=== PATIENT | female | born 1965 | race Caucasian/White ===

== ENCOUNTER 2017-10-19 10:01 | Emergency (ER) | payer BC, OTHER ==
[~2017-10-19] VITALS: Ht 165.1 cm; Wt 63.5 kg
[~2017-10-19 10:01] MED LIST: CHOL100045 PO; DOCU100C37 PO; HYDR-34 PO; IBUP-1773 PO; OMG1KC PO; SIME80TA16 PO
[2017-10-19] MEDS ORDERED: ASPIRIN 81 MG CHEW (CHILDREN'S ASA) PO ONE (10:15)
[2017-10-19 10:33] LABS: BASOPHILS % (AUTO) 0 % (0-10); EOSINOPHILS # (AUTO) 0.1 10^3/uL (0.0-0.3); EOSINOPHILS % (AUTO) 1 % (0-10); HEMATOCRIT 40 % (35-52); HEMOGLOBIN 13.9 G/DL (11.5-16.0); LYMPHOCYTES # (AUTO) 2.3 X 10^3 (1.0-4.0); LYMPHOCYTES % (AUTO) 22 % (12-44); MEAN CORPUSCULAR HEMOGLOBIN 33 PG (25-34); MEAN CORPUSCULAR HGB CONC 35 G/DL (32-36); MEAN CORPUSCULAR VOLUME 93 FL (80-99); MONOCYTES # (AUTO) 0.8 X 10^3 (0.0-1.0); MONOCYTES % (AUTO) 7 % (0-12); NEUTROPHILS # (AUTO) 7.6 X 10^3 (1.8-7.8); NEUTROPHILS % (AUTO) 71 % (42-75); PLATELET COUNT 162 10^3/uL (130-400); RED BLOOD COUNT 4.26 10^6/uL (4.35-5.85); RED CELL DISTRIBUTION WIDTH 12.3 % (10.0-14.5); WHITE BLOOD COUNT 10.7 10^3/uL (4.3-11.0)
[2017-10-19 10:44] LABS: PROTHROMBIN TIME PATIENT 12.6 SEC (12.2-14.7)
[2017-10-19 10:55] LABS: ALANINE AMINOTRANSFERASE 20 U/L (0-55); ALKALINE PHOSPHATASE 83 U/L (40-136); AMYLASE 42 U/L (25-125); BILIRUBIN,TOTAL 0.4 MG/DL (0.1-1.0); BUN/CREATININE RATIO 17; CALCIUM 9.7 MG/DL (8.5-10.1); CARBON DIOXIDE 21 MMOL/L (21-32); CHLORIDE 107 MMOL/L (98-107); CREATINE KINASE 49 U/L (29-168); CREATININE SERUM 0.66 MG/DL (0.60-1.30); GFR ESTIMATED > 60; GLUCOSE 162 MG/DL (70-105); LIPASE 12 U/L (8-78); POTASSIUM 3.8 MMOL/L (3.6-5.0); SODIUM 140 MMOL/L (135-145); TOTAL PROTEIN 6.8 GM/DL (6.4-8.2)
[2017-10-19 11:02] LABS: CREATINE KINASE MB 0.9 NG/ML (<6.6)
[2017-10-19] MEDS ORDERED: methylPREDNISolone 125 MG (Solu-MEDROL) VIAL IV STA (11:06)
--- NOTE | 2017-10-19 11:06 | Diagnostic Imaging Report ---
INDICATION: Intermittent right-sided chest pain worse with inspiration since yesterday evening. History of pneumothorax. Productive cough.. TECHNIQUE: Single view chest 10:39 AM. CORRELATION STUDY: None FINDINGS: Surgical changes suture line of the right lung apex. Lung estrada are hyperinflated. Biapical pleural-parenchymal thickening and likely scarlike formation. There is asymmetric increased density at the right lung base suspect for small area of infiltrate. Heart size, mediastinum and vasculature are overall within normal limits. IMPRESSION: 1. Suspect for infiltrate of the right lung base superimposed on chronic change at the lung parenchyma. Dictated by: Dictated on workstation # [id number]
[2017-10-19] MEDS ORDERED: IOHEXOL 350 MG/ML 100 ML (OMNIPAQUE 350) VIAL IV ONE (11:15)
[2017-10-19] MEDS ORDERED: NS 250 ML (IVPB) BAG IV ONE (11:15)
[2017-10-19] MEDS ORDERED: CATHETER FLUSH 10 ML SYR IV PRN (11:15)
--- NOTE | 2017-10-19 12:38 | Diagnostic Imaging Report ---
PROCEDURE: CT angiography of the chest with contrast. TECHNIQUE: Multiple contiguous axial images were obtained through the chest after uneventful bolus administration of intravenous contrast. Reconstructed CTA MIP acquisitions were also performed. INDICATION: Chest pain Findings: There is no filling defect in the pulmonary arteries to suggest pulmonary embolism. The heart size is within normal limits. Thoracic aorta unremarkable. There is no pathologically enlarged mediastinal and/or hilar lymph nodes. Lung estrada with rather advanced fibroemphysematous changes. Multifocal scattered areas of asymmetric parenchymal density are noted particularly involving the lung apices. This is likely largely owing to scarring. Some of these areas are slightly stellate and possibility of neoplasm would be difficult to exclude at this baseline study. There is slightly more focal consolidation about the lateral aspect of the the right middle lobe. This region measures approximately 4.6 cm. A few air bronchograms are suggested. No significant pleural effusion. Visualized portions of the upper abdomen demonstrate hyperplasia about the adrenal glands. IMPRESSION: 1. No CT evidence for pulmonary embolism. 2. Findings likely reflective of a focal consolidation with pneumonia of the right middle lobe. 3. 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 Asymmetrical parenchymal scarring about the lung apices is suggested. Additionally, surgical change of the right lung apex. 4. Given no prior studies, would recommend repeat imaging be obtained approximately 2-3 months for followup assessment. Dictated by: Dictated on workstation # [id number]
[2017-10-19] MEDS ORDERED: BENZ-13 PO (12:53)
[2017-10-19] MEDS ORDERED: METH4TAB PO (12:53)
[2017-10-19] MEDS ORDERED: GUAI1TBM19 PO (12:53)
[2017-10-19] MEDS ORDERED: AZIT500T PO (12:53)
[2017-10-19] MEDS ORDERED: CEFD300C3 PO (12:53)
--- NOTE | 2017-10-19 12:53 | ED Chest Pain ---
General Chief Complaint: Chest Pain Stated Complaint: R SIDE CP Nursing Triage Note: pt reports intermittent r sided cp that is worse with inspiration since yesterday evening. Pt has hx of pneumothorax in both lungs. pt also reports productive cough. Nursing Sepsis Screen: No Definite Risk Source: patient Exam Limitations: no limitations History of Present Illness Date Seen by Provider: Oct 19, 2017 Time Seen by Provider: 10:05 Initial Comments PT ARRIVES VIA POV FROM HOME C/O RIGHT CHEST PAIN/TIGHTNESS THAT COMES AND GOES SINCE NIGHT BEFORE LAST PAIN STARTED WHILE AT WORK 2 NIGHTS AGO, THEN TRIED TO GO TO WORK LAST NIGHT BUT COULD NOT GO DUE TO PAIN PAIN IS BETTER TODAY--HAS BEEN 10/10 THE LAST 2 NIGHTS, RATES 5/10 TODAY BEGAN HAVING A PRODUCTIVE COUGH TODAY--COLORED SPUTUM HAS HAD SUBJECTIVE CHILLS TODAY, NO SWEATS AND HAS NOT TAKEN TEMP NO SHORTNESS OF BREATH NO SWELLING IN LEGS/ FEET OR PAIN IN CALVES. NO HISTORY OF SIMILAR PT HAS HAD MULTIPLE BILATERAL PNEUMOTHORACES, AND HAS HAD SURGICAL REPAIR ON RIGHT IN . STATES THIS PAIN IS NOT THE SAME WITH THOSE PROBLEMS. HAS NOT TAKEN ANYTHING FOR SYMPTOMS AT ANY TIME PT CONTINUES TO SMOKE UP TO 2 PPD PCP: [facility], KRISTYN LAWTON Allergies and Home Medications Allergies Coded Allergies: No Known Drug Allergies (Unverified , 12/01/15) Home Medications Azithromycin 500 Mg Tablet, 500 MG PO DAILY FOR INFECTION Prescribed by: SEAN CONNER on 10/19/17 1253 Benzonatate 100 Mg Capsule, 1-2 TAB PO TID Prescribed by: SEAN CONNER on 10/19/17 1253 Cefdinir 300 Mg Capsule, 300 MG PO BID Prescribed by: SEAN CONNER on 10/19/17 1253 Cholecalciferol (Vitamin D3) 1,000 Unit Tablet, 1,000 UNIT PO HS, (Reported) Docusate Sodium 100 Mg Capsule, 100 MG PO BID PRN for CONSTIPATION Prescribed by: JOSE E CORDOBA on 12/04/15 0924 Guaifenesin/Dextromethorphan 1 Each Tbmp.12hr, 1 EACH PO BID Prescribed by: SEAN CONNER on 10/19/17 1253 Hydrocodone Bit/Acetaminophen 1 Each Tablet, 1-2 EA PO Q6H PRN for PAIN Prescribed by: JOSE E CORDOBA on 8/18/16 0924 Ibuprofen 600 Mg Tablet, 600 MG PO Q6H PRN for PAIN Prescribed by: JOSE E CORDOBA on 12/04/15923 Methylprednisolone 4 Mg Tab.ds.pk, 4 MG PO UD Prescribed by: SEAN CONNER on 10/19/17 1253 [place] 3 Polyunsat Fatty Acids 1,000 Mg Cap, 1,000 MG PO HS, (Reported) Simethicone 80 Mg Tab.chew, 40 MG PO TID PRN for INDIGESTION Prescribed by: JOSE E CORDOBA on 12/04/15923 Patient Home Medication List Home Medication List Reviewed: Yes Review of Systems Constitutional: see HPI, chills EENTM: No Symptoms Reported Respiratory: See HPI, Cough; Denies Shortness of Air Cardiovascular: See HPI, Chest Pain; Denies Edema, Denies Lightheadedness, Denies Palpitations, Denies Syncope Gastrointestinal: No Symptoms Reported Genitourinary: No Symptoms Reported Musculoskeletal: no symptoms reported Skin: no symptoms reported Psychiatric/Neurological: No Symptoms Reported Endocrine: No Symptoms Reported Hematologic/Lymphatic: No Symptoms Reported Past Qxusqqf-Cckora-Zhtpzb Hx Patient Social History Alcohol Use: Denies Use Recreational Drug Use: No Smoking Status: Current Everyday Smoker (1-2 PPD) Type Used: Cigarettes Recent Foreign Travel: No Contact w/Someone Who Travel: No Recent Infectious Disease Expo: No Physical Abuse: No Sexual Abuse: No Mistreated: No Fear: No Past Medical History Surgeries: Yes (MULTIPLE CHEST TUBES; RIGHT LUNG SURGERY FOR RECURRENT PNEUMOTHORAX; HYST/BSO/DERMOID CYST) Hysterectomy, Oophorectomy Respiratory: Yes (RIGHT PNEUMOTHORAX X 3; LEFT PNEUMOTHORAX X 1 OR 2; RIGHT LUNG SURGERY FOR RECURRENT PNEUMOTHORAX IN ) COPD Cardiac: No Neurological: No Reproductive Disorders: Yes (DERMOID CYST; HYST/BSO) SHIP PILOT History: Hysterectomy, Menopausal Genitourinary: No Gastrointestinal: Yes Irritable Bowel Musculoskeletal: No Endocrine: No HEENT: No Loss of Vision: Denies Cancer: No Psychosocial: No Nursing Suicide Risk Score: 0 Integumentary: No Blood Disorders: No Family Medical History Abdominal aortic aneurysm 19 FATHER Alcoholism 19 FATHER 19 MOTHER Arthritis 19 MOTHER Asthma Cardiovascular disease 19 FATHER Completed stroke 19 MOTHER Hypertension G8 BROTHER Myocardial infarction G8 BROTHER VIT D AND B12 DEFICIENCY Physical Exam Vital Signs Vital Signs - First Documented Capillary Refill : Less Than 3 Seconds General Appearance: No Apparent Distress, WD/WN, Other (OCCASIONAL DRY COUGH. REEKS OF CIGARETTES) HEENT: PERRL/EOMI, Normal ENT Inspection Neck: Full Range of Motion, Normal Inspection, Non Tender, Supple Respiratory: Chest Non Tender, No Accessory Muscle Use, No Respiratory Distress , Decreased Breath Sounds (IN RIGHT BASE), Rales (IN RIGHT BASE) Cardiovascular: Regular Rate, Rhythm, No Edema, No JVD, No Murmur, Normal Peripheral Pulses Gastrointestinal: Normal Bowel Sounds, No Organomegaly, No Pulsatile Mass, Non Tender, Soft Extremity: Normal Range of Motion, Non Tender, No Calf Tenderness, No Pedal Edema Neurologic/Psychiatric: Alert, Oriented x3, No Motor/Sensory Deficits, Normal Mood/Affect, counter help II-XII Norm as Tested Skin: Normal Color, Warm/Dry; No Rash Progress/Results/Core Measures Results/Orders Lab Results Laboratory Tests Test 10/19/17 10:15 Range/Units White Blood Count 10.7 4.3-11.0 10^3/uL Red Blood Count 4.26 L 4.35-5.85 10^6/uL Hemoglobin 13.9 11.5-16.0 G/DL Hematocrit 40 35-52 % Mean Corpuscular Volume 93 80-99 FL Mean Corpuscular Hemoglobin 33 25-34 PG Mean Corpuscular Hemoglobin Concent 35 32-36 G/DL Red Cell Distribution Width 12.3 10.0-14.5 % Platelet Count 162 130-400 10^3/uL Mean Platelet Volume 12.0 H 7.4-10.4 FL Neutrophils (%) (Auto) 71 42-75 % Lymphocytes (%) (Auto) 22 12-44 % Monocytes (%) (Auto) 7 0-12 % Eosinophils (%) (Auto) 1 0-10 % Basophils (%) (Auto) 0 0-10 % Neutrophils # (Auto) 7.6 1.8-7.8 X 10^3 Lymphocytes # (Auto) 2.3 1.0-4.0 X 10^3 Monocytes # (Auto) 0.8 0.0-1.0 X 10^3 Eosinophils # (Auto) 0.1 0.0-0.3 10^3/uL Basophils # (Auto) 0.0 0.0-0.1 10^3/uL Prothrombin Time 12.6 12.2-14.7 SEC INR Comment 1.0 0.8-1.4 Activated Partial Thromboplast Time 27 24-35 SEC Sodium Level 140 135-145 MMOL/L Potassium Level 3.8 3.6-5.0 MMOL/L Chloride Level 107 98-107 MMOL/L Carbon Dioxide Level 21 21-32 MMOL/L Anion Gap 12 5-14 MMOL/L Blood Urea Nitrogen 11 7-18 MG/DL Creatinine 0.66 0.60-1.30 MG/DL Estimat Glomerular Filtration Rate > 60 BUN/Creatinine Ratio 17 Glucose Level 162 H 70-105 MG/DL Calcium Level 9.7 8.5-10.1 MG/DL Total Bilirubin 0.4 0.1-1.0 MG/DL Aspartate Amino Transf (AST/SGOT) 13 5-34 U/L Alanine Aminotransferase (ALT/SGPT) 20 0-55 U/L Alkaline Phosphatase 83 40-136 U/L Total Creatine Kinase 49 29-168 U/L Creatine Kinase MB 0.9 <6.6 NG/ML Troponin I < 0.30 <0.30 NG/ML B-Type Natriuretic Peptide 28.8 <100.0 PG/ML Total Protein 6.8 6.4-8.2 GM/DL Albumin 4.0 3.2-4.5 GM/DL Amylase Level 42 25-125 U/L Lipase 12 8-78 U/L My Orders Orders - SEAN CONNER DO Amylase (10/19/17 10:05) Cbc With Automated Diff (10/19/17 10:05) Comprehensive Metabolic Panel (10/19/17 10:05) Creatine Kinase (10/19/17 10:05) Creatine Kinase Mb (10/19/17 10:05) Lipase (10/19/17 10:05) Partial Thromboplastin Time (10/19/17 10:05) Protime With Inr (10/19/17 10:05) Troponin I (10/19/17 10:05) Chest 1 View, Ap/Pa Only (10/19/17 10:05) O2 (10/19/17 10:05) Ekg Tracing (10/19/17 10:05) Aspirin Chewable Tablet (Baby Aspirin Ch (10/19/17 10:15) BNP (10/19/17 10:05) Monitor-Rhythm Ecg Trace Only (10/19/17 10:05) Ct Angio Chest W (10/19/17 11:06) Methylprednisolone Sod Succ (Solu-Medrol (10/19/17 11:06) Iohexol Injection (Omnipaque 350 Mg/Ml 1 (10/19/17 11:15) Sodium Chloride Flush (Catheter Flush Sy (10/19/17 11:15) Ns (Ivpb) (Sodium Chloride 0.9%) (10/19/17 11:15) Pharmacy Communication (Pharmacy Communi (10/19/17 11:07) Ceftriaxone Injection (Rocephin Injectio (10/19/17 13:00) Medications Given in ED Current Medications Medications Dose Ordered Sig/Mandeep Route Start Time Stop Time Status Last Admin Dose Admin Aspirin 324 mg ONCE ONCE PO 10/19/17 10:15 10/19/17 10:16 DC 10/19/17 10:20 324 MG Ceftriaxone Sodium 1000 mg/ Sodium Chloride 50 ml @ 100 mls/hr ONCE ONCE IV 10/19/17 13:00 10/19/17 13:29 DC 10/19/17 13:00 100 MLS/HR Iohexol 100 ml ONCE ONCE IV 10/19/17 11:15 10/19/17 11:16 DC 10/19/17 11:31 100 ML Sodium Chloride 10 ml NEEDED PRN IV 10/19/17 11:15 10/19/17 13:36 DC 10/19/17 11:31 10 ML Sodium Chloride 250 ml ONCE ONCE IV 10/19/17 11:15 10/19/17 11:16 DC 10/19/17 11:31 80 ML Vital Signs/I&O 10/19/17 10/19/17 10/19/17 10:30 10:30 10:37 Temp 98.4 Pulse 80 Resp 20 B/P (MAP) 124/63 (83) Pulse Ox 96 96 O2 Delivery Nasal Cannula Nasal Cannula Nasal Cannula O2 Flow Rate 2.00 2.0 2.00 Blood Pressure Mean: 83 Progress Progress Note : Progress Note RIGHT SIDED CHEST PAIN RESOLVED WITH SOLU-MEDROL, AND COUGH DECREASED UNEVENTFUL ER STAY Diagnostic Imaging Comments CXR--INFILTRATE IN RIGHT BASE, PER RADIOLOGIST REPORT CT CHEST ANGIOGRAM--NO P.E.. ADVANCED FIBROEMPHYSEMATOUS CHANGES IN LUNG PARENCHYMA, WITH ASYMMETRICAL SCARRING IN APICES, SURGICAL CHANGE IN RIGHT APEX , FOCAL CONSOLIDATION IN RML PER RADIOLOGIST REPORTS @ 1243 Reviewed: Reviewed by Me Departure Impression Primary Impression: RML pneumonia Disposition: 01 HOME, SELF-CARE Condition: Improved Departure-Patient Inst. Referrals: [facility] (PCP/Family) Primary Care Physician Patient Instructions: Community-Acquired Pneumonia, Adult (DC) Add. Discharge Instructions: TYLENOL AND MOTRIN NEEDED FOR PAIN OR FEVER LOTS OF CLEAR LIQUIDS FOLLOW UP WITH [facility] IN 3-4 DAYS RETURN TO ER IF WORSE All discharge instructions reviewed with patient and/or family. Voiced understanding. Scripts Guaifenesin/Dextromethorphan (Mucinex Dm ER 1,200-60 mg Tab) 1 Each Tbmp.12hr 1 EACH PO BID for 10 Days, #20 EA Prov: SEAN CONNER DO 10/19/17 Benzonatate (Tessalon Perle) 100 Mg Capsule 1-2 TAB PO TID for Cough, #30 CAP Prov: SEAN CONNER DO 10/19/17 Methylprednisolone (Medrol) 4 Mg Tab.ds.pk 4 MG PO UD, #1 PKG Prov: SEAN CONNER DO 10/19/17 Azithromycin (Zithromax) 500 Mg Tablet 500 MG PO DAILY, #5 TAB FOR INFECTION Prov: SEAN CONNER DO 10/19/17 Cefdinir (Cefdinir) 300 Mg Capsule 300 MG PO BID for FOR INFECTION, #20 CAP Prov: SEAN CONNER DO 10/19/17 Work/School Note: Work Release Form Date Seen in the Emergency Department: Oct 19, 2017 Restrictions: Need Release from Doctor Other Restrictions Listed Below: NO WORK UNTIL RELEASED BY SEAN GREGG DO Oct 19, 2017 12:53
[2017-10-19] MEDS ORDERED: cefTRIAXone INJECTION 1,000 MG in NS (IVPB) 50 ML IV ONE (13:00)
[2017-10-19 13:36] VITALS: BP 118/69
== END 2017-10-19 13:36 | disposition home or self-care (01) ==
LOC: EDUNIT# 10:01 → ER 10:02
DX: J18.1 Lobar pneumonia, unspecified organism (principal); J44.9 Chronic obstructive pulmonary disease, unspecified; F17.210 Nicotine dependence, cigarettes, uncomplicated; Z90.710 Acquired absence of both cervix and uterus; Z87.09 Personal history of other diseases of the respiratory system
CPT/HCPCS: 36415; 71045; 71275; 80053; 82150; 82550; 82553; 83690; 83880; 84484; 85025; 85610; 85730; 93005; 93041; 96374; 96375

== ENCOUNTER → 2020-08-15 | Outpatient (CLI) | payer OTHER ==
[~2020-08-15] MED LIST changes: +AZIT500T PO; +BENZ100C18 PO; +CEFD300C3 PO; +GUAI1TBM19 PO; +METH4TAB PO
--- NOTE | 2020-08-15 12:42 | Diagnostic Imaging Report ---
Indication: Routine screening. Comparison is made with prior mammogram from 11/11/2015. 2-D and 3-D bilateral screening mammography was performed with CAD. Scattered fibroglandular densities are identified bilaterally. The parenchymal pattern is stable. No mass or malignant appearing microcalcifications are seen. Axillae are unremarkable. IMPRESSION: BI-RADS Category 1 No mammographic features suspicious for malignancy are identified. ACR BI-RADS Category 1: Negative. Result letter will be mailed to the patient. Note: At least 10% of breast cancer is not imaged by mammography. Dictated by: Dictated on workstation # [id number]
== END ==
LOC: RAD 09:45
PROVIDERS: ATTEND Family Medicine
DX: Z12.31 Encounter for screening mammogram for malignant neoplasm of breast (principal)
CPT/HCPCS: 77063; 77067

== ENCOUNTER → 2020-09-11 | Outpatient (CLI) | payer OTHER ==
[~2020-09-11] MED LIST changes: +NF-VITD400 PO; +PANT40TA52 PO
--- NOTE | 2020-09-11 09:53 | Diagnostic Imaging Report ---
PROCEDURE: US Gallbladder. TECHNIQUE: Multiple real-time grayscale images were obtained over the right upper quadrant in various projections. INDICATION: Epigastric pain. The liver is normal in size at 17 cm. No discrete liver mass is detected. Portal vein is patent and shows normal direction of flow. Gallbladder is without stones or sludge. There is no wall thickening or biliary ductal dilatation. Pancreas is unremarkable. Aorta is nonaneurysmal. IVC is patent. Right kidneys without calculi or hydronephrosis. There is no ascites. IMPRESSION: Unremarkable gallbladder ultrasound. Dictated by: Dictated on workstation # [id number]
== END ==
LOC: RAD 08:55
PROVIDERS: ATTEND Family Medicine
DX: R10.13 Epigastric pain (principal)
CPT/HCPCS: 76705

== ENCOUNTER 2020-09-19 05:34 | Outpatient (RCR) | payer OTHER ==
[~2020-09-19] VITALS: Ht 165.1 cm; Wt 66.7 kg
== END 2020-09-19 14:07 | disposition home or self-care (01) ==
LOC: PREOP 05:34
PROVIDERS: ATTEND Surgery
DX: Z01.812 Encounter for preprocedural laboratory examination (principal); Z12.11 Encounter for screening for malignant neoplasm of colon; Z20.822 Contact with and (suspected) exposure to COVID-19
CPT/HCPCS: 87635

== ENCOUNTER 2021-02-28 01:43 | Emergency (ER) | payer OTHER ==
[~2021-02-28] VITALS: Ht 65 cm; Wt 67.6 kg
--- NOTE | 2021-02-28 02:13 | ED Chest Pain ---
General Chief Complaint: Chest Pain Stated Complaint: CP,CHEST TIGHTNESS,COUGH,RUNNY NOSE Source: patient Exam Limitations: no limitations History of Present Illness Date Seen by Provider: Feb 28, 2021 Time Seen by Provider: 01:54 Initial Comments Patient to the ER by private conveyance from her work at [employer] with chief complaints of been having 8/10 chest pain throughout the night on her left side reproducible to direct palpation and worse laying down flat. She does not have a history of coronary disease hypertension hyperlipidemia diabetes or thyroid disease. She does smoke a pack of cigarettes per day. She says her mom and father both of heart related illnesses in their 70s. No swelling in her hands or feet. No fevers or chills but she woke up yesterday morning with runny nose cough and thought it was just allergies. She did receive 2 doses of COVID- 19 vaccination by Dina in July and has had her influenza vaccine for this year. No shortness of air. No vomiting diarrhea. Patient has a history of multiple bilateral pneumothoraces with surgical repair in the . She has advanced fibroemphysematous changes noted on her CT angiogram from 2017. Allergies and Home Medications Allergies Coded Allergies: No Known Drug Allergies (Unverified , 12/01/15) Patient Home Medication List Home Medication List Reviewed: Yes Pantoprazole Sodium (Pantoprazole Sodium) 40 Mg Tablet.dr, 40 MG PO DAILY, (Reported) Entered as Reported by: MK PETERSON on 09/11/20 1100 Vitamin D (Vitamin D3) 10 Mcg Tablet, 400 MCG PO DAILY, (Reported) Entered as Reported by: MK PETERSON on 09/11/20 1100 Review of Systems Review of Systems Constitutional: No chills, No diaphoresis, No fever; malaise EENTM: No Blurred Vision, No Double Vision Respiratory: Cough; Denies Shortness of Air Cardiovascular: Chest Pain; Denies Edema, Denies Lightheadedness Gastrointestinal: Denies Abdominal Pain, Denies Constipated, Denies Diarrhea, Denies Nausea Genitourinary: Denies Burning, Denies Discharge Musculoskeletal: No back pain, No joint pain Psychiatric/Neurological: Denies Anxiety, Denies Depressed All Other Systems Reviewed Negative Unless Noted: Yes Past Mcfslfv-Pmtbxk-Gcnuod Hx Patient Social History Tobacco Use?: Yes Tobacco type used: Cigarettes Use of E-Cig and/or Vaping dev: No Use of E-Cig and/or Vaping Martinez: Former User Substance use?: No Alcohol Use?: No Pt feels they are or have been: No Immunizations Up To Date Influenza Vaccine Up-to-Date: Yes; Up-to-Date First/Initial COVID19 Vaccinat: 07/2020 Second COVID19 Vaccination Ajay: 08/2020 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 Manager Industrial: [employer] Past Medical History Surgeries: Yes Hysterectomy, Oophorectomy Respiratory: Yes COPD Cardiac: No Neurological: No Reproductive Disorders: Yes (DERMOID CYST; HYST/BSO) [employer] MAKER History: Hysterectomy, Menopausal Genitourinary: No Gastrointestinal: Yes Irritable Bowel Musculoskeletal: No Endocrine: No HEENT: No Loss of Vision: Denies Cancer: No Psychosocial: No Integumentary: No Blood Disorders: No Family Medical History Abdominal aortic aneurysm 19 FATHER Alcoholism 19 FATHER 19 MOTHER Arthritis 19 MOTHER Asthma Cardiovascular disease 19 FATHER Completed stroke 19 MOTHER Hypertension G8 BROTHER Myocardial infarction G8 BROTHER VIT D AND B12 DEFICIENCY Physical Exam Vital Signs Vital Signs - First Documented 02/28/21 01:55 Temp 36.6 Pulse 88 Resp 20 B/P (MAP) 159/68 (98) Pulse Ox 95 O2 Delivery Room Air Capillary Refill : Less Than 3 Seconds Height, Weight, BMI Height: 5'5.00" Weight: 140lbs. 9.0oz. 63.704401bp; 22.80 BMI Method:Stated General Appearance: WD/WN, Anxious, Mild Distress HEENT: PERRL/EOMI, TMs Normal, Normal ENT Inspection, Pharynx Normal, Moist Mucous Membranes Neck: Full Range of Motion, Normal Inspection, Non Tender, Supple Respiratory: No Chest Non Tender (Chest pain reproducible to palpation over the left chest); Lungs Clear, Normal Breath Sounds, No Accessory Muscle Use, No Respiratory Distress Cardiovascular: Regular Rate, Rhythm, No Edema, Normal Peripheral Pulses Gastrointestinal: Normal Bowel Sounds, No Organomegaly, Non Tender, Soft Extremity: Normal Capillary Refill, Normal Inspection, Non Tender, No Calf Tenderness, No Pedal Edema Neurologic/Psychiatric: Alert, Oriented x3 Skin: Normal Color, Warm/Dry Progress/Results/Core Measures Results/Orders Lab Results Laboratory Tests Test 02/28/21 02:05 02/28/21 02:12 11/13/21 04:55 Range/Units White Blood Count 13.2 H 4.3-11.0 10^3/uL Red Blood Count 3.98 3.80-5.11 10^6/uL Hemoglobin 12.5 11.5-16.0 g/dL Hematocrit 39 35-52 % Mean Corpuscular Volume 97 80-99 fL Mean Corpuscular Hemoglobin 31 25-34 pg Mean Corpuscular Hemoglobin Concent 33 32-36 g/dL Red Cell Distribution Width 12.4 10.0-14.5 % Platelet Count 199 130-400 10^3/uL Mean Platelet Volume 11.7 9.0-12.2 fL Immature Granulocyte % (Auto) 0 % Neutrophils (%) (Auto) 73 42-75 % Lymphocytes (%) (Auto) 18 12-44 % Monocytes (%) (Auto) 7 0-12 % Eosinophils (%) (Auto) 1 0-10 % Basophils (%) (Auto) 0 0-10 % Neutrophils # (Auto) 9.7 H 1.8-7.8 10^3/uL Lymphocytes # (Auto) 2.4 1.0-4.0 10^3/uL Monocytes # (Auto) 1.0 0.0-1.0 10^3/uL Eosinophils # (Auto) 0.1 0.0-0.3 10^3/uL Basophils # (Auto) 0.0 0.0-0.1 10^3/uL Immature Granulocyte # (Auto) 0.0 0.0-0.1 10^3/uL Prothrombin Time 13.3 12.2-14.7 SEC INR Comment 1.0 0.8-1.4 Activated Partial Thromboplast Time 28 24-35 SEC D-Dimer 0.76 H 0.00-0.49 UG/ML Sodium Level 138 135-145 MMOL/L Potassium Level 3.7 3.6-5.0 MMOL/L Chloride Level 103 98-107 MMOL/L Carbon Dioxide Level 23 21-32 MMOL/L Anion Gap 12 5-14 MMOL/L Blood Urea Nitrogen 19 H 7-18 MG/DL Creatinine 0.74 0.60-1.30 MG/DL Estimat Glomerular Filtration Rate 81 BUN/Creatinine Ratio 26 Glucose Level 117 H 70-105 MG/DL Calcium Level 9.2 8.5-10.1 MG/DL Corrected Calcium 9.1 8.5-10.1 MG/DL Magnesium Level 1.9 1.6-2.4 MG/DL Total Bilirubin 0.5 0.1-1.0 MG/DL Aspartate Amino Transf (AST/SGOT) 19 5-34 U/L Alanine Aminotransferase (ALT/SGPT) 31 0-55 U/L Alkaline Phosphatase 86 40-136 U/L Myoglobin 25.3 10.0-92.0 NG/ML Troponin I < 0.028 < 0.028 <0.028 NG/ML B-Type Natriuretic Peptide 11.4 <100.0 PG/ML Total Protein 6.8 6.4-8.2 GM/DL Albumin 4.1 3.2-4.5 GM/DL Lipase 19 8-78 U/L Influenza Type A (RT-PCR) Not Detected Not Detecte Influenza Type B (RT-PCR) Not Detected Not Detecte SARS-CoV-2 RNA (RT-PCR) Not Detected Not Detecte My Orders Orders - ARIK SIMON Continuous Ekg Monitoring (02/28/21 01:52) Ekg Tracing (02/28/21 01:52) Cbc With Automated Diff (02/28/21 02:07) Magnesium (02/28/21 02:07) Chest 1 View, Ap/Pa Only (02/28/21 02:07) Comprehensive Metabolic Panel (02/28/21 02:07) Myoglobin Serum (02/28/21 02:07) Protime With Inr (02/28/21 02:07) Partial Thromboplastin Time (02/28/21 02:07) O2 (02/28/21 02:07) Lipid Panel (03/01/21 06:00) Ed Iv/Invasive Line Start (02/28/21 02:07) Lipase (02/28/21 02:07) BNP (02/28/21 02:07) Troponin I (02/28/21 02:07) Nitroglycerin 0.4 Mg Btl 25's (Nitrostat (02/28/21 02:15) Aspirin Chewable Tablet (Baby Aspirin Ch (02/28/21 02:15) Covid 19 Inhouse Test (02/28/21 02:13) Influenza A And B By Pcr (02/28/21 02:13) Fibrin Degradation Products (02/28/21 02:05) Ct Angio Chest W (02/28/21 02:54) Ed Iv/Invasive Line Start (02/28/21 02:54) Ns Iv 1000 Ml (Sodium Chloride 0.9%) (02/28/21 03:00) Troponin I (02/28/21 05:00) Iohexol Injection (Omnipaque 350 Mg/Ml 1 (02/28/21 03:45) Received Contrast (Hold Metformin- Contr (02/28/21 03:45) Ns (Ivpb) (Sodium Chloride 0.9% Ivpb Bag (02/28/21 03:45) Medications Given in ED Current Medications Medications Dose Ordered Sig/Amndeep Route Start Time Stop Time Status Last Admin Dose Admin Aspirin 243 mg ONCE ONCE PO 02/28/21 02:15 02/28/21 02:17 DC 02/28/21 02:20 243 MG Iohexol 75 ml ONCE ONCE IV 02/28/21 03:45 02/28/21 03:46 DC 02/28/21 03:45 75 ML Nitroglycerin 0.4 mg UD PRN SL 02/28/21 02:15 02/28/21 02:20 0.4 MG Sodium Chloride 100 ml ONCE ONCE IV 02/28/21 03:45 02/28/21 03:46 DC 02/28/21 03:45 80 ML Vital Signs/I&O 02/28/21 02/28/21 01:55 01:55 Temp 36.6 Pulse 88 Resp 20 B/P (MAP) 159/68 (98) Pulse Ox 95 95 O2 Delivery Room Air Room Air Progress Progress Note #1: Time: 02:12 Progress Note Concern for angina versus pneumonia versus chest wall pain versus other. We will swab her for Covid and influenza give her another 3 tablets of aspirin x81 mg each and trial some nitroglycerin. Chest pain work-up including chest x-ray. There was a slight delay obtaining an EKG as our machine stopped working and another one had to be procured from another [facility]. D-dimer for intermediate risk factors. Progress Note #2: Time: 06:04 Progress Note The patient was sleeping softly and has negative delta troponin. Probable pneumonia on CT angiogram noted. We will give her first round dose of antibiotics Rocephin and azithromycin. Did offer the patient stay in the hospital as when she slapped her oxygen did dip down to 89%. Patient declined stating she would rather do antibiotics at home. We will have her follow-up with her primary care doctor next week. We will give her a referral for cardiology if she wants to pursue further work-up. Initial ECG Impression Date: Feb 28, 2021 Initial ECG Impression Time: 02:07 Initial ECG Rate: 80 Initial ECG Rhythm: Normal Sinus Initial ECG Intervals: Normal Initial ECG Impression: Normal Initial ECG Comparisson: Unchanged Comment Normal sinus rhythm without clinically relevant ST changes. Stable compared to previous EKGs. Diagnostic Imaging Diagonstic Imaging: Xray Plain Films/CT/US/NM/MRI: chest Comments No acute cardiopulmonary process on 1 view chest x-ray. [facility] [place] NAME: MIKY HELLER Richard [facility] REC#: [id number] PT STATUS: REG ER : 1965 PHYSICIAN: ARIK SIMON MD ADMIT DATE: 02/28/21/ER Draft Date of Exam:02/28/21 CHEST 1 VIEW, AP/PA ONLY EXAMINATION: Chest radiograph, portable AP view. DATE: 02/28/2021 2:46 AM INDICATION: 55-year-old female, chest pain. COMPARISON: October 19, 2017. FINDINGS: There are sutures and surgical clips in the right lung apex. There are probable upper lobe findings of emphysema. Heart size and mediastinal contours are unchanged. There is no identified pneumothorax. There is no large pleural effusion. There is airspace consolidation in the lingula. IMPRESSION: 1. Airspace consolidation in the lingula which may relate to pneumonia, aspiration, or other alveolar consolidative process. 2. Upper lobe predominant findings of emphysema. 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 There is an area of consolidation or atelectasis in the lingula. No pulmonary emboli. [facility] [place] NAME: MIKY HELLER [facility] REC#: [id number] PT STATUS: REG ER : 1965 PHYSICIAN: ARIK SIMON MD ADMIT DATE: 02/28/21/ER Draft Date of Exam:02/28/21 CT ANGIO CHEST W PROCEDURE: CT angiography of the chest with contrast. TECHNIQUE: Multiple contiguous axial images were obtained through the chest after uneventful bolus administration of intravenous contrast. 3D reconstructed CTA MIP acquisitions were also performed. Auto Exposure Controls were utilized during the CT exam to meet ALARA standards for radiation dose reduction. DATE: February 28, 2021. COMPARISON: CT chest October 19, 2017. INDICATION: 55-year-old female, chest pain and cough. FINDINGS: There is pleural parenchymal scarring in the lung apices. There are upper lobe predominant findings of emphysema. There is nonspecific airspace consolidation in the lingula. This is new since the prior CT chest exam. There is no additional focal airspace consolidation. There is no pneumothorax. There is no pleural effusion. Central airways are patent. The heart is not enlarged. There is no pericardial effusion. There is no identified central or segmental pulmonary embolus. There is limited evaluation for subsegmental pulmonary emboli given the timing of the contrast bolus. There is no identified abnormally enlarged mediastinal, hilar, or axillary lymph node meeting CT size criteria for adenopathy. The imaged portions of the upper abdomen are grossly unremarkable. There are atherosclerotic calcifications present. There is no identified acute bony abnormality. IMPRESSION: CT CHEST. 1. No identified pulmonary embolus. 2. Nonspecific airspace consolidation in the lingula which may relate to pneumonia, aspiration, or other filtrate. 3. Upper lobe predominant findings of emphysema with pleural parenchymal scarring in the lung apices. Agree with provided preliminary report. Dictated on workstation # [id number] Dict: 02/28/21 0404 Trans: 02/28/21 0417 VERONICA [id number] Interpreted by: PEMA DODD MD Electronically signed by: Reviewed: Reviewed by Me Departure Impression Primary Impression: Chest pain Qualified Codes: R07.9 - Chest pain, unspecified Additional Impression: RML pneumonia Qualified Codes: J18.9 - Pneumonia, unspecified organism Disposition: 01 HOME, SELF-CARE Condition: Stable Departure-Patient Inst. Decision time for Depature: 06:05 Referrals: [facility] (PCP/Family) Primary Care Physician JERE RODRIGUEZ MD Patient Instructions: Chest Pain (DC), Troponin Test, Pneumonia, Adult (DC) Add. Discharge Instructions: Tuesday morning call Dr. Rodriguez's office and request follow-up appointment this week. Return to the ER for worsening symptoms. Aspirin 81 mg daily until you see the heart doctor. Follow-up in 1 week with your primary care doctor. Cefdinir twice a day for 10 days. Azithromycin once a day for the next 4 days starting tomorrow, 03/01/2021. All discharge instructions reviewed with patient and/or family. Voiced understanding. Scripts Azithromycin (Azithromycin) 250 Mg Tablet 250 MG PO DAILY, #4 TAB 0 Refills Prov: ARIK SIMON 02/28/21 Cefdinir (Cefdinir) 300 Mg Capsule 300 MG PO BID for 10 Days, #20 CAP 0 Refills Prov: ARIK SIMON 02/28/21 Copy Copies To 1: JERE RODRIGUEZ MD, TITUS J Feb 28, 2021 02:13
[2021-02-28 02:15] LABS: BASOPHILS % (AUTO) 0 % (0-10); EOSINOPHILS # (AUTO) 0.1 10^3/uL (0.0-0.3); EOSINOPHILS % (AUTO) 1 % (0-10); HEMATOCRIT 39 % (35-52); HEMOGLOBIN 12.5 g/dL (11.5-16.0); LYMPHOCYTES # (AUTO) 2.4 10^3/uL (1.0-4.0); LYMPHOCYTES % (AUTO) 18 % (12-44); MEAN CORPUSCULAR HEMOGLOBIN 31 pg (25-34); MEAN CORPUSCULAR HGB CONC 33 g/dL (32-36); MEAN CORPUSCULAR VOLUME 97 fL (80-99); MEAN PLATELET VOLUME 11.7 fL (9.0-12.2); MONOCYTES % (AUTO) 7 % (0-12); NEUTROPHILS # (AUTO) 9.7 10^3/uL (1.8-7.8); NEUTROPHILS % (AUTO) 73 % (42-75); PLATELET COUNT 199 10^3/uL (130-400); WHITE BLOOD COUNT 13.2 10^3/uL (4.3-11.0)
[2021-02-28] MEDS ORDERED: NITROGLYCERIN 0.4 MG SL TABS BTL 25'S SL PRN (02:15)
[2021-02-28] MEDS ORDERED: ASPIRIN 81 MG CHEW (CHILDREN'S ASA) PO ONE (02:15)
[2021-02-28 02:28] LABS: ALBUMIN 4.1 GM/DL (3.2-4.5); POTASSIUM 3.7 MMOL/L (3.6-5.0); PROTHROMBIN TIME PATIENT 13.3 SEC (12.2-14.7)
[2021-02-28 02:29] LABS: CALCIUM 9.2 MG/DL (8.5-10.1)
[2021-02-28 02:31] LABS: TOTAL PROTEIN 6.8 GM/DL (6.4-8.2)
[2021-02-28 02:32] LABS: BILIRUBIN,TOTAL 0.5 MG/DL (0.1-1.0)
[2021-02-28 02:34] LABS: CREATININE SERUM 0.74 MG/DL (0.60-1.30)
[2021-02-28 02:37] LABS: MAGNESIUM 1.9 MG/DL (1.6-2.4)
[2021-02-28 02:40] LABS: FIBRIN DEGRADATION PRODUCTS 0.76 UG/ML (0.00-0.49)
[2021-02-28] MEDS ORDERED: NS IV 1000 ML 1,000 ML IV SCH (03:00)
[2021-02-28] MEDS ORDERED: HOLD METFORMIN - RECEIVED CONTRAST 20 ML VIAL IV SCH (03:45)
[2021-02-28] MEDS ORDERED: IOHEXOL 350 MG/ML 100 ML (OMNIPAQUE 350) VIAL IV ONE (03:45)
[2021-02-28] MEDS ORDERED: NS 100 ML (IVPB) BAG IV ONE (03:45)
--- NOTE | 2021-02-28 04:18 | Diagnostic Imaging Report ---
PROCEDURE: CT angiography of the chest with contrast. TECHNIQUE: Multiple contiguous axial images were obtained through the chest after uneventful bolus administration of intravenous contrast. 3D reconstructed CTA MIP acquisitions were also performed. Auto Exposure Controls were utilized during the CT exam to meet ALARA standards for radiation dose reduction. DATE: February 28, 2021. COMPARISON: CT chest October 19, 2017. INDICATION: 55-year-old female, chest pain and cough. FINDINGS: There is pleural parenchymal scarring in the lung apices. There are upper lobe predominant findings of emphysema. There is nonspecific airspace consolidation in the lingula. This is new since the prior CT chest exam. There is no additional focal airspace consolidation. There is no pneumothorax. There is no pleural effusion. Central airways are patent. The heart is not enlarged. There is no pericardial effusion. There is no identified central or segmental pulmonary embolus. There is limited evaluation for subsegmental pulmonary emboli given the timing of the contrast bolus. There is no identified abnormally enlarged mediastinal, hilar, or axillary lymph node meeting CT size criteria for adenopathy. The imaged portions of the upper abdomen are grossly unremarkable. There are atherosclerotic calcifications present. There is no identified acute bony abnormality. IMPRESSION: CT CHEST. 1. No identified pulmonary embolus. 2. Nonspecific airspace consolidation in the lingula which may relate to pneumonia, aspiration, or other filtrate. 3. Upper lobe predominant findings of emphysema with pleural parenchymal scarring in the lung apices. Agree with provided preliminary report. Dictated by: Dictated on workstation # [id number]
--- NOTE | 2021-02-28 04:25 | Diagnostic Imaging Report ---
EXAMINATION: Chest radiograph, portable AP view. DATE: 02/28/2021 2:46 AM INDICATION: 55-year-old female, chest pain. COMPARISON: October 19, 2017. FINDINGS: There are sutures and surgical clips in the right lung apex. There are probable upper lobe findings of emphysema. Heart size and mediastinal contours are unchanged. There is no identified pneumothorax. There is no large pleural effusion. There is airspace consolidation in the lingula. IMPRESSION: 1. Airspace consolidation in the lingula which may relate to pneumonia, aspiration, or other alveolar consolidative process. 2. Upper lobe predominant findings of emphysema. Dictated by: Dictated on workstation # [id number]
[2021-02-28] MEDS ORDERED: CEFD300C3 PO (06:06)
[2021-02-28] MEDS ORDERED: AZIT250T12 PO (06:06)
[2021-02-28] MEDS ORDERED: cefTRIAXone 1 GM PRE-MIX 50 ML IV STA (06:07)
[2021-02-28] MEDS ORDERED: AZITHROMYCIN 250 MG TAB (ZITHROMAX) PO ONE (06:15)
[2021-02-28 06:32] VITALS: BP 159/68
== END 2021-02-28 06:45 | disposition home or self-care (01) ==
LOC: EDUNIT# 01:43 → ER 01:48
DX: R07.9 Chest pain, unspecified (principal); J18.1 Lobar pneumonia, unspecified organism; J44.9 Chronic obstructive pulmonary disease, unspecified; Z72.0 Tobacco use; Z20.822 Contact with and (suspected) exposure to COVID-19
CPT/HCPCS: 36415; 71045; 71275; 80053; 83690; 83735; 83874; 83880; 84484; 85025; 85379; 85610; 85730; 87636; 93005

== ENCOUNTER → 2021-03-18 | Outpatient (CLI) | payer OTHER ==
[~2021-03-18] MED LIST changes: +AZIT250T12 PO
== END ==
LOC: CARD 08:50
PROVIDERS: ATTEND Internal Medicine Cardiovascular Disease
DX: I10 Essential (primary) hypertension (principal)
CPT/HCPCS: 93306

== ENCOUNTER → 2021-08-19 | Outpatient (CLI) | payer OTHER ==
[2021-08-19 10:48] VITALS: BP 125/70
--- NOTE | 2021-08-19 17:08 | Cardiology Stress Test Report ---
Stress Test Report Date of Procedure/Referring: Date of Procedure: August 19, 2021 PCP Asya Chen [facility] Indications: CP Baseline Heart Rate: 68 Baseline Blood Pressure: Blood Pressure Systolic: 125 Blood Pressure Diastolic: 70 Baseline EKG: Baseline EKG: NSR Summary/Conclusion: Summary: In summary, the patient started exercising with a baseline heart rate, blood pressure and EKG mentioned above Patient was able to exercise for a total of 6 minutes on Josr protocol, METs 7.3 Maximum heart rate 142 Maximum blood pressure 177/64 Stress EKG, Minimal nondiagnostic changes Recovery EKG , Return to baseline Conclusion: 1. Good exercise tolerance for a total of 6 minutes on Josr protocol, 7.4 METs, achieving 86percent of maximum expected heart rate 2. Minimal nondiagnostic EKG changes with exercise returned to baseline during recovery 3. No arrhythmia was noted JERE HANNAH MD August 19, 2021 17:08
== END ==
LOC: CARD 10:30
PROVIDERS: ATTEND Physician Assistant
DX: R07.9 Chest pain, unspecified (principal)
CPT/HCPCS: 93017

== ENCOUNTER → 2021-08-28 | Outpatient (CLI) | payer OTHER ==
[2021-08-28 16:46] LABS: ALBUMIN 4.2 GM/DL (3.2-4.5); BILIRUBIN,TOTAL 0.4 MG/DL (0.1-1.0); CALCIUM 9.1 MG/DL (8.5-10.1); CREATININE SERUM 0.72 MG/DL (0.60-1.30); POTASSIUM 4.1 MMOL/L (3.6-5.0); TOTAL PROTEIN 6.7 GM/DL (6.4-8.2)
== END ==
LOC: LAB 16:04
PROVIDERS: ATTEND Physician Assistant
DX: E78.2 Mixed hyperlipidemia (principal)
CPT/HCPCS: 36415; 80053; 80061

== ENCOUNTER 2021-09-08 13:08 | Emergency (ER) | payer OTHER ==
[~2021-09-08] VITALS: Ht 165 cm; Wt 68.0 kg
[2021-09-08] MEDS ORDERED: KETOROLAC 30 MG/ML VIAL IM ONE (14:30)
[2021-09-08] MEDS ORDERED: ORPHENADRINE 60 MG/2 ML (NORFLEX) AMP (ED ONLY) IM ONE (14:30)
--- NOTE | 2021-09-08 14:30 | ED Back Pain ---
General Chief Complaint: Back Problems Stated Complaint: L LEG PAIN/BACK PAIN Nursing Triage Note: pt presents to ed via pov from home with complaints of l lower back pain that radiates down l leg since tuesday after pulling weeds. pt reports she has not taken any pain medication today. Source of Information: Patient Exam Limitations: No Limitations History of Present Illness Date Seen by Provider: September 08, 2021 Time Seen by Provider: 14:26 Initial Comments This is a 56-year-old female who presented to the ER with complaints of left- sided lower back pain that radiates down the back of her leg for the past 3 days. Allergies and Home Medications Allergies Coded Allergies: No Known Drug Allergies (Unverified , 12/01/15) Patient Home Medication List Home Medication List Reviewed: Yes Azithromycin (Azithromycin) 250 Mg Tablet, 250 MG PO DAILY Prescribed by: ARIK SIMON on 02/28/21 06 Cefdinir (Cefdinir) 300 Mg Capsule, 300 MG PO BID Prescribed by: ARIK SIMON on 02/28/21 0606 Hydrocodone/Acetaminophen (Hydrocodone-Acetamin 5-325 mg) 5 Mg-325 Mg Tablet, 1 TAB PO Q6H PRN for PAIN-MODERATE (5-7) Prescribed by: CAIO TABOR on 09/08/21 1527 Pantoprazole Sodium (Pantoprazole Sodium) 40 Mg Tablet.dr, 40 MG PO DAILY, (Reported) Entered as Reported by: MK PETERSON on 09/11/20 1100 Vitamin D (Vitamin D3) 10 Mcg Tablet, 400 MCG PO DAILY, (Reported) Entered as Reported by: MK PETERSON on 09/11/20 1100 Past Fglmxkr-Bcctwn-Xmbhjo Hx Patient Social History Tobacco Use?: Yes Tobacco type used: Cigarettes Smoking Status: Current Everyday Smoker Substance use?: No Alcohol Use?: No Pt feels they are or have been: No Immunizations Up To Date First/Initial COVID19 Vaccinat: 07/2020 Second COVID19 Vaccination Ajay: 08/2020 Third COVID19 Vaccination Date: 07/2020 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 Basket Hand Braider: navya Past Medical History Surgery/Hospitalization HX: pmh: htn, gerd, ibs Surgeries: Yes Hysterectomy, Oophorectomy Respiratory: Yes COPD Cardiac: No Neurological: No Reproductive Disorders: Yes (DERMOID CYST; HYST/BSO) DEAN OF ADMISSIONS History: Hysterectomy, Menopausal Genitourinary: No Gastrointestinal: Yes Irritable Bowel Musculoskeletal: No Endocrine: No HEENT: No Loss of Vision: Denies Cancer: No Psychosocial: No Integumentary: No Blood Disorders: No Family Medical History Abdominal aortic aneurysm 19 FATHER Alcoholism 19 FATHER 19 MOTHER Arthritis 19 MOTHER Asthma Cardiovascular disease 19 FATHER Completed stroke 19 MOTHER Hypertension G8 BROTHER Myocardial infarction G8 BROTHER VIT D AND B12 DEFICIENCY Physical Exam Vital Signs Vital Signs - First Documented 09/08/21 13:42 Temp 36.4 Pulse 90 Resp 18 B/P (MAP) 165/70 (101) Pulse Ox 96 Capillary Refill : Less Than 3 Seconds Height, Weight, BMI Height: 5'5.00" Weight: 140lbs. 9.0oz. 63.668502ab; 24.00 BMI Method:Stated Progress/Results/Core Measures Results/Orders My Orders Orders - CAIO TABOR FACULTY MEMBER Ketorolac Injection (Toradol Injection) (09/08/21 14:30) Orphenadrine Inj (Ed Only) (Norflex Inje (09/08/21 14:30) Lumbar Spine - 2-3 Views (09/08/21 14:30) Medications Given in ED Current Medications Medications Dose Ordered Sig/Mandeep Route Start Time Stop Time Status Last Admin Dose Admin Ketorolac Tromethamine 30 mg ONCE ONCE IM 09/08/21 14:30 09/08/21 14:31 DC 09/08/21 14:36 30 MG Orphenadrine Citrate 30 mg ONCE ONCE IM 09/08/21 14:30 09/08/21 14:31 DC 09/08/21 14:36 30 MG Vital Signs/I&O 09/08/21 13:42 Temp 36.4 Pulse 90 Resp 18 B/P (MAP) 165/70 (101) Pulse Ox 96 Blood Pressure Mean: 101 Departure Impression Primary Impression: Spondylosis Disposition: 01 HOME, SELF-CARE Condition: Improved Departure-Patient Inst. Decision time for Depature: 15:25 Referrals: [facility] (PCP) Primary Care Physician JAY SCOTT DO (Family) Primary Care Physician Patient Instructions: Spondylolysis Add. Discharge Instructions: Plan: 1. Avoid Heavy lifting, bending, twisting or pulling over the next several days. 2. Take steroids daily with food as directed. 3. May take Tylenol or ibuprofen as needed for pain per package. 4. Take hydrocodone as needed for severe or breakthrough pain. 5. Follow-up with your primary care provider if your symptoms persist All discharge instructions reviewed with patient and/or family. Voiced understanding. Scripts Prednisone (Prednisone) 20 Mg Tab 40 MG PO DAILY, #6 TAB 0 Refills Prov: CAIO TABOR FACULTY MEMBER 09/08/21 Hydrocodone/Acetaminophen (Hydrocodone-Acetamin 5-325 mg) 5 Mg-325 Mg Tablet 1 TAB PO Q6H PRN for PAIN-MODERATE (5-7), #10 TAB 0 Refills Prov: CAIO TABOR FACULTY MEMBER 09/08/21 Work/School Note: Work Release Form Date Seen in the Emergency Department: September 08, 2021 Return to Work: September 15, 2021 CAIO TABOR FACULTY MEMBER September 08, 2021 14:30
--- NOTE | 2021-09-08 14:55 | Diagnostic Imaging Report ---
Indication: Low back pain radiating to the left leg. Time of Exam: 2:47 PM Three views of the lumbar spine were obtained. Curvature and alignment are normal. Vertebral body heights are well-maintained. No acute compression fracture is seen. There are mild degenerative changes with variable disc space narrowing and spurring, greatest at the L5-S1 level. Atherosclerotic calcifications within the abdominal aorta are noted. IMPRESSION: Spondylosis. No acute bony abnormality is detected. Dictated by: Dictated on workstation # [id number]
[2021-09-08] MEDS ORDERED: ACHD5005 PO (15:27)
[2021-09-08] MEDS ORDERED: PRD20T PO (15:29)
[2021-09-08 15:31] VITALS: BP 156/72
== END 2021-09-08 15:31 | disposition home or self-care (01) ==
LOC: EDUNIT# 13:08 → ER 13:09
DX: M47.816 Spondylosis without myelopathy or radiculopathy, lumbar region (principal); F17.210 Nicotine dependence, cigarettes, uncomplicated
CPT/HCPCS: 72100; 99283